=== PATIENT | male | born 1995 | race Caucasian/White ===

== ENCOUNTER 2018-08-24 11:47 | Emergency (ER) | payer BC ==
[~2018-08-24] VITALS: Wt 69.0 kg
[2018-08-24 11:50] VITALS: Wt 69.0 kg
[2018-08-24] MEDS ORDERED: SODIUM CHLORIDE 0.9% 1L BAG IV* STA (12:33)
[2018-08-24] MEDS ORDERED: IPRATROPIUM (NEB) 0.5 MG/2.5 ML AMP NEB STA (12:33)
[2018-08-24] MEDS ORDERED: ALBUTEROL 0.083% (NEB) 2.5 MG/3 ML AMP NEB STA (12:33)
[2018-08-24] MEDS ORDERED: KETOROLAC 30 MG INJ IV STA (12:44)
--- NOTE | 2018-08-24 12:48 | ERD ---
ER Documentation Chief Complaint Chief Complaint FEVER/COUGH X 2 WEEKS HPI Patient is a 23 years old male with no known past medical history presenting to the clinic with 2.5 weeks of fever and persistent cough. patient reports visit [facility] and was exposed to his uncle who had bronchitis with similar symptoms. Patient reports of persistent green sputum, shortness of breath, difficulty breathing, coryza, nasal congestion, chest congestion, fever, chills, night sweats, diarrhea, and NBNB Emesis. He reports being evaluated by Dr. Spear who prescribed him Unasyn and Abrilar. Patient states that he took the medication for 1 week and did not improve. She then reports visiting his PCP in [place] who prescribe him some unknown eardrops and Robitussin with codeine for 1 week. Denies any ear pain and is unsure what the eardrops were for. Patient states that the cough syrup did not help him and is now visiting [facility] and requesting further evaluation. ROS All systems reviewed and are negative except as per history of present illness. Allergies Allergies: Coded Allergies: No Known Allergy (Unverified , 08/24/18) PMhx/Soc Patient denied past medical history Medical and Surgical Hx: pt denies Medical Hx, pt denies Surgical Hx History of Surgery: No Anesthesia Reaction: No Hx Neurological Disorder: No Hx Respiratory Disorders: No Hx Cardiac Disorders: No Hx Psychiatric Problems: No Hx Miscellaneous Medical Probl: No Hx Alcohol Use: No Hx Substance Use: No Hx Tobacco Use: No FmHx Patient denies family medical history Family History: No diabetes, No coronary disease, No other Physical Exam Vitals Vital Signs Date Temp Pulse Resp B/P (MAP) Pulse Ox O2 O2 Flow FiO2 Time Delivery Rate 08/24/18 75 16 100 21 13:43 08/24/18 101.1 112 18 134/82 99 11:50 (99) Physical Exam Const: Patient looks lethargic. Head: Atraumatic Eyes: Normal Conjunctiva ENT: Mild erythematous tympanic membrane bilaterally without any discharge. Buccal Mucosa dry. Mild oropharyngeal erythema. Bilateral tonsillar enlargement with white lesion. Neck: Full range of motion. No meningismus. Resp: Clear to auscultation bilaterally Cardio: Elevated rate with normal rhythm, no murmurs Skin: No petechiae or rashes. Ext: No cyanosis, or edema Neur: Awake and alert Psych: Normal Mood and Affect Result Diagram: 08/24/18 1314 08/24/18 1314 Results 24 hrs Laboratory Tests Test 08/24/18 13:11 08/24/18 13:13 08/24/18 13:14 08/24/18 13:18 Monoscreen Positive Urine Color COLORLESS Urine Clarity CLEAR Urine pH 7.0 Urine Specific 1.002 [place] Urine Ketones NEGATIVE mg/dL Urine Nitrite NEGATIVE mg/dL Urine Bilirubin NEGATIVE mg/dL Urine NEGATIVE mg/dL Urobilinogen Urine Leukocyte NEGATIVE Jose/ul Esterase Urine Hemoglobin NEGATIVE mg/dL Urine Glucose NEGATIVE mg/dL Urine Total NEGATIVE mg/dl Protein White Blood Count 19.4 10^3/ul Red Blood Count 4.91 10^6/ul Hemoglobin 14.1 g/dl Hematocrit 43.0 % Mean Corpuscular 87.6 fl Volume Mean Corpuscular 28.7 pg Hemoglobin Mean Corpuscular 32.8 g/dl Hemoglobin Concen t Red Cell 12.4 % Distribution Width Platelet Count 295 10^3/UL Mean Platelet 9.9 fl Volume Immature 0.500 % Granulocytes % Neutrophils % 84.5 % Lymphocytes % 7.4 % Monocytes % 7.3 % Eosinophils % 0.1 % Basophils % 0.2 % Nucleated Red 0.0 /100WBC Blood Cells % Immature 0.100 10^3/ul Granulocytes # Neutrophils # 16.4 10^3/ul Lymphocytes # 1.4 10^3/ul Monocytes # 1.4 10^3/ul Eosinophils # 0.0 10^3/ul Basophils # 0.0 10^3/ul Nucleated Red 0.0 10^3/ul Blood Cells # Prothrombin Time 14.1 Sec Prothrombin Time 1.1 Ratio INR International 1.08 Normalized Ratio Activated 34.5 Sec Partial Thrombopl ast Time Sodium Level 138 mmol/L Potassium Level 3.9 mmol/L Chloride Level 100 mmol/L Carbon Dioxide 27 mmol/L Level Anion Gap 11 Blood Urea 9 mg/dl Nitrogen Creatinine 0.99 mg/dl Est Glomerular > 60 mL/min Filtrat Rate mL/min Glucose Level 101 mg/dl Calcium Level 8.9 mg/dl Total Bilirubin 0.7 mg/dl Direct Bilirubin 0.00 mg/dl Indirect 0.7 mg/dl Bilirubin Aspartate Amino 21 IU/L Transf (AST/SGOT) Alanine 20 IU/L Aminotransferase (ALT/SGPT) Alkaline 84 IU/L Phosphatase Total Protein 8.2 g/dl Albumin 4.3 g/dl Globulin 3.90 g/dl Albumin/Globulin 1.10 Ratio POC Venous 1.9 mmol/L Lactate Current Medications Medications Dose Sig/Estefani Start Time Status Last (Trade) Ordered Route PRN Stop Time Admin Dose Reason Admin Albuterol 5 mg ONCE STAT 08/24/18 DC 08/24/18 (Proventil NEB 12:33 13:41 0.083% (Neb)) 08/24/18 12:42 Ipratropium 1 mg ONCE STAT 08/24/18 DC 08/24/18 [place] NEB 12:33 13:41 (Atrovent 08/24/18 12:42 0.02% (Neb)) Sodium 2,070 ml BOLUS OVER 2 08/24/18 DC 08/24/18 Chloride HOURS STAT 12:33 13:27 (NS) IV* 08/24/18 12:42 Ceftriaxone 50 ml @ ONCE ONCE 08/24/18 DC 08/24/18 Sodium 100 mls/hr IVPB 13:00 13:37 08/24/18 13:29 Ketorolac 30 mg ONCE STAT 08/24/18 DC 08/24/18 Tromethamine IV 12:44 13:28 (Toradol) 08/24/18 12:46 Famotidine 20 mg ONCE ONCE 08/24/18 DC 08/24/18 (Pepcid Iv) IV 13:00 13:28 08/24/18 13:01 Procedures/MDM Patient was evaluated for his cough and possible sepsis. Patient was given empiric treatment of Rocephin 1 g and nebulizer in clinic while awaiting labs. Patient was given 2L of NS IV. Patient's labs shows elevated white blood cells and positive mono test. Patient's tonsillitis is secondary to mononucleosis. Patient's chest x-ray was unremarkable. After discussing with Dr. Hawkins, it was recommended to sepsis Workup as patient had fever for greater than 2 weeks and is currently mildly tachycardic. Antibiotic withheld due to reaction with viral infection. Patient was advised to follow-up with primary care provider for secondary evaluation of ears for Otitis media. Patient was advised to avoid physical activity (sports), contact, and sharing food with the people for up to total of 6 weeks. Patient was advised and agreed to aggressive fluid hydration. Patient was informed blood cultures will be ready in 48 hours and will be notified should blood cultures show any results. Patient was discharged in stable condition. Departure Diagnosis: Primary Impression: Fever Fever type: unspecified Qualified Codes: R50.9 - Fever, unspecified Additional Impressions: Tonsillitis Otitis media Otitis media type: suppurative Chronicity: acute Laterality: bilateral Recurrence: non-recurrent Spontaneous tympanic membrane rupture: without spontaneous rupture Qualified Codes: H66.003 - Acute suppurative otitis media without spontaneous rupture of ear drum, bilateral Mononucleosis Infectious mononucleosis etiology: cytomegalovirus Infectious mononucleosis complication: without complication Qualified Codes: B27.10 - Cytomegaloviral mononucleosis without complications Condition: Stable Additional Instructions: Patient advised to return to the ED immediately for new or worsening symptoms. Patient advised to follow up with primary care provider in the next 24-48 hours. Patient verbalized understanding and agrees with treatment plan and course of action. If patient has no primary care they may follow up with [facility] + [address] [address] or [facility] [id number] [place] [id number] or [facility] [address] [place] [address] JOHANA VELEZ PA-C August 24, 2018 12:48
[2018-08-24] MEDS ORDERED: FAMOTIDINE 20 MG INJ IV ONE (13:00)
[2018-08-24] MEDS ORDERED: CEFTRIAXONE 1 GM/50 ML (PMX) 50 ML IVPB ONE (13:00)
[2018-08-24 15:36] VITALS: BP 126/74; PULSE 92; RESP 18
== END 2018-08-24 15:37 | disposition home or self-care (01) ==
LOC: FTE 11:47
DX: J03.90 Acute tonsillitis, unspecified (principal); H66.003 Acute suppurative otitis media without spontaneous rupture of ear drum, bilateral; B27.10 Cytomegaloviral mononucleosis without complications; R05 Cough
CPT/HCPCS: 71046; 80053; 81003; 83605; 85025; 85610; 85730; 86308; 87040; 87086; 94664; 96374; 96375; 99284; J0696; J1885; J7030